=== PATIENT | female | born 1975 | race Caucasian/White ===

== ENCOUNTER 2023-12-21 04:17 | Day surgery (SDC) | payer OTHER ==
[2023-12-20 15:22] VITALS: BMI 19.5
[2023-12-21 08:51] VITALS: RESP 18
[2023-12-21] MEDS ORDERED: DEXTROSE 5%-0.45% SALINE 1,000 ML IV SCH (11:30)
[2023-12-21] MEDS ORDERED: HEPARIN NA (PORCINE) 5,000 UNITS/ML 1ML VIAL ONE (11:44)
[2023-12-21] MEDS ORDERED: MIDAZOLAM HCL 2 MG/2 ML SINGLE DOSE VIAL ONE (11:49)
[2023-12-21] MEDS: ceFAZolin SODIUM 1 GM VIAL IVPB ONE (12:20)
[2023-12-21] MEDS: SODIUM BICARBONATE 8.4% 50 MEQ/50 ML VIAL IV ONE (12:26)
[2023-12-21] MEDS: HEPARIN NA (PORCINE) 5,000 UNITS/ML 1ML VIAL IV ONE (12:26)
[2023-12-21] MEDS: LIDOCAINE HCL 1%, 10 MG/ML (20ML VIAL) NR ONE (12:26)
[2023-12-21] MEDS ORDERED: oxyCODONE HCL 5 MG TABLET PO PRN (12:47)
[2023-12-21] MEDS ORDERED: PROMETHAZINE HCL 25 MG/1 ML VIAL IVPB PRN (12:47)
[2023-12-21] MEDS: LACTATED RINGERS SOLUTION 1,000 ML IV SCH (13:00)
[2023-12-21 16:11] VITALS: BP 115/68; PULSE 75; TEMP 97.5
== END 2023-12-21 15:15 | disposition home or self-care (01) ==
LOC: JASU-SURG 04:17
PROVIDERS: ATTEND Urology
PROC: 0T7B8ZZ Dilation of Bladder, Via Natural or Artificial Opening Endoscopic (ICD-10-PCS; principal; 2023-12-21 10:30)
PROC: 3E0K8GC Introduction of Other Therapeutic Substance into Genitourinary Tract, Via Natural or Artificial Opening Endoscopic (ICD-10-PCS; 2023-12-21 10:30)
DX: N30.10 Interstitial cystitis (chronic) without hematuria (principal)
CPT/HCPCS: 81025; 94760; J1644